=== PATIENT | male | born 1960 | race Caucasian/White ===

== ENCOUNTER 2024-12-24 08:13 | Outpatient (AMB) | payer MEDICAID, SELFPAY ==
[2024-12-24 08:26] VITALS: BP 153/96; PULSE 88; RESP 18; TEMP 36.2; O2SAT 99; BMI 28.5
--- NOTE | 2024-12-24 08:26 | PD.ORTHCLVIS ---
Vital signs 12/24/24 08:26 Height 1.74 m Height Method Stated Weight 86.324 kg Weight Measurement Method Standing Scale BMI 28.5 BP 153/96 H Blood Pressure Source Automatic Cuff Blood Pressure Location Left Upper Arm Position Sitting Respiration 18 Pulse 88 Pulse Source Monitor Temp 97.2 F Temp Source Temporal Artery Scan Pulse Oximetry (%) 99 Oxygen Delivery Method Room Air Med/Allergies Allergies & Medications Allergies No Known Allergies Allergy (Verified 12/24/24 08:27) Medication Reconciliation fluoxetine 40 mg capsule (Prozac) 40 mg PO QDAY 05/23/23 [History Confirmed 12/24/24] hydrocodone 10 mg-acetaminophen 325 mg/15 mL (15 mL) oral solution 15 ml PO Q8H PRN 12/24/24 [History Confirmed 12/24/24] meloxicam 7.5 mg tablet 7.5 mg PO QDAY #45 tabs 12/24/24 [Rx] Exam Exam Patient is in no acute distress and is cooperative with the examination today. Breathing is nonlabored. In no respiratory distress. Patient has no paraspinal tenderness. Spinal deformity cannot be appreciated. The gait of the patient is nonantalgic Bilateral extremities were evaluated and demonstrates sensation intact to light touch. Palpable pedal pulses are present. No significant edema is present. Bilateral knees were examined and the patient has full strength and range of motion.. The left hip was examined. Patient was able to flex to 90 degrees, adduct to 30 degrees, abduct to 40 degrees, internally rotate to 20 degrees, and externally rotate to 20 degrees. Patient has a negative logroll. Stinchfield is negative. The patient is nontender diffusely to touch. The right hip was examined. Patient was able to flex to 90 degrees, adduct to 30 degrees, abduct to 40 degrees, internally rotate to 10 degrees, and externally rotate to 20 degrees. Patient has a positive logroll and a positive Stinchfield. He has a positive FADIR as well. An MRI demonstrates degenerative changes including arthritis as well as joint space narrowing and osteophytes. He does have a gluteus medius tear as well as a labral tear according to the report Assessment and Plan Problem List (1) Arthritis of right hip: Status: Acute Plan: Patient is a pleasant 64-year-old male with right hip arthritis. We discussed different treatment options. We will start with anti-inflammatory we will try injections if needed. I will also like to get a hip x-rays only have an MRI Office Procedures GNS Level of Care Nursing/Assessment Patient Status: Initial/New Patient Nursing Assessment/Reassesment: Medication Reconciliation, Update PMH in EMR and Vital Signs Coordination of Care: Complex Care and Chronic Disease 1-5, Education Complex Pt/Fam, Consent,records obtained, informed consent, 1 Ins Authorization, Lab and Imaging orders, Results/Orders obtained and Staff clarify orders New Patient Charge New Patient Point Assignment: 1124 New Patient Point Charge: NOTE SPECIALIST Level 4 ([id number]) MA Intake Visit Data Collection New Patient or Established: Established Patient (seen at [facility] within 3 years) Reason for Visit:: RIGHT HIP- TEAR GLUTEOS MEDIUS Seen by Clinical Staff ONLY (RN/MA): No Heavy Equipment Operating Engineer Required: No PCP or OBGYN visit in last 3 months: Yes Hx Now: No Do You Feel Safe at Home: Yes Authorities Contacted: N/A Questionairres Past Medical History Past Medical History Have you ever been diagnosed with any of the following: Cardiology Problems Congestive Heart Failure: No Cardiomyopathy: Yes Respiratory Problems Chronic Obstructive Pulmonary Disease (COPD): No Smoking: No Smoking Exposure: No Tobacco Use: No Genital/Urinary Problems Renal Disease: No Endocrine Problems Diabetes Mellitus Type 1: No Diabetes Mellitus Type 2: No Psychologic Problems Recreational Drug Use: Yes Subjective Visit Visit for: new patient and hip (RIGHT HIP- TEAR GLUTEOS MEDIUS) Immunization / Flu Flu Vaccine in the Last 12 Months: Yes Flu Vaccine Exclusion Criteria: Already Received History of Present Illness Chief complaint: Right hip pain Gaetano is a pleasant 65-year-old male with right hip pain. This has been ongoing for 1 year. He had an MRI and was told he had a gluteus medius as well as a labral tear. He reports a lot of pain in his groin. He has not tried significant conservative treatment. He is taking [place] Personal History Red flag PMH: none Pain Pain level (0-10): 9 Pain duration: 1 YEAR Pain location: groin Pain quality: sharp Pain timing: night and increases with activity Associated signs & symptoms: none Ambulatory data Ambulatory device: none Walking distance (minutes): 5 Treatments Number of previous injections: 0 Number of Physical Therapy sessions: 0 Improvement with NSAIDS: n/a Review of Systems Review of Systems: All systems negative unless otherwise noted in HPI.
--- NOTE | 2024-12-24 08:54 | XR_ITS ---
Examination:Right hip AP, lateral, AP pelvis 3 views Technique: Hip AP lateral, AP pelvis, 3 views Exam date and time:December 24, 2024 0857 hours INDICATIONS: Right hip pain beginning 14 years ago. FINDINGS: Moderate narrowing right hip joint No right hip fracture or dislocation Mild narrowing left hip joint No hip or pelvic fracture IMPRESSION: Moderate right hip osteoarthritis.
== END 2024-12-24 08:58 | disposition home or self-care (01) ==
LOC: HODSRG 08:13
PROVIDERS: PCP Emergency Medicine; Referring Provider Emergency Medicine; Supervising Provider Orthopaedic Surgery Adult Reconstructive Orthopaedic Surgery; Visit Provider Orthopaedic Surgery Adult Reconstructive Orthopaedic Surgery
DX: M16.11 Unilateral primary osteoarthritis, right hip (principal); M25.551 Pain in right hip
CPT/HCPCS: 73502; 99204; G0463

== ENCOUNTER 2025-01-16 07:59 | Outpatient (AMB) | payer MEDICAID, SELFPAY ==
[2025-01-16 08:14] VITALS: BP 138/92; PULSE 92; RESP 18; TEMP 36.3; O2SAT 98; BMI 28.3
--- NOTE | 2025-01-16 08:14 | ORTHONT_ITS ---
Vital signs 01/16/25 08:14 Height 1.74 m Height Method Measured Weight 85.956 kg Weight Measurement Method Standing Scale BMI 28.3 BP 138/92 H Blood Pressure Source Automatic Cuff Blood Pressure Location Left Upper Arm Position Sitting Respiration 18 Pulse 92 Pulse Source Monitor Temp 97.4 F Temp Source Temporal Artery Scan Pulse Oximetry (%) 98 Oxygen Delivery Method Room Air Med/Allergies Allergies & Medications Allergies No Known Allergies Allergy (Verified 01/16/25 08:15) Medication Reconciliation fluoxetine 40 mg capsule (Prozac) 40 mg PO QDAY 05/23/23 [History Confirmed 12/31 01/24] hydrocodone 10 mg-acetaminophen 325 mg/15 mL (15 mL) oral solution 15 ml PO Q8H PRN 12/24/24 [History Confirmed 01/16/25] meloxicam 7.5 mg tablet 7.5 mg PO QDAY #45 tabs 12/24/24 [Rx Confirmed 01/16/25] Exam Exam Patient is in no acute distress and is cooperative with the examination today. Breathing is nonlabored. In no respiratory distress. Patient has no paraspinal tenderness. Spinal deformity cannot be appreciated. The gait of the patient is nonantalgic Bilateral extremities were evaluated and demonstrates sensation intact to light touch. Palpable pedal pulses are present. No significant edema is present. Bilateral knees were examined and the patient has full strength and range of motion.. The left hip was examined. Patient was able to flex to 90 degrees, adduct to 30 degrees, abduct to 40 degrees, internally rotate to 20 degrees, and externally rotate to 20 degrees. Patient has a negative logroll. Stinchfield is negative. The patient is nontender diffusely to touch. The right hip was examined. Patient was able to flex to 90 degrees, adduct to 30 degrees, abduct to 40 degrees, internally rotate to 10 degrees, and externally rotate to 20 degrees. Patient has a positive logroll and a positive Stinchfield. He has a positive FADIR as well. An MRI demonstrates degenerative changes including arthritis as well as joint space narrowing and osteophytes. He does have a gluteus medius tear as well as a labral tear according to the report Assessment and Plan Problem List (1) Arthritis of right hip: Status: Acute Plan: Patient is a pleasant 64-year-old male with right hip arthritis. We discussed different treatment options. We will start with anti-inflammatory we will try injections if needed. We will try a right hip intraarticular cortisone injection as his osteoarthritis is mild to moderate Office Procedures GNS Level of Care Nursing/Assessment Patient Status: Established Patient Nursing Assessment/Reassesment: Medication Reconciliation, Update PMH in EMR and Vital Signs Coordination of Care: Complex Care and Chronic Disease 1-5, Education Complex Pt/Fam, Consent,records obtained, informed consent, 1 Ins Authorization, Lab and Imaging orders, Results/Orders obtained and Staff clarify orders Established Patient Charge Established Patient Point Assignment: 125 Established Patient Point Charge: EP Level 3 (80-115) MA Intake Visit Data Collection New Patient or Established: Established Patient (seen at [facility] within 3 years) Reason for Visit:: XRAY RESULTS/HIP INJECTION Seen by Clinical Staff ONLY (RN/MA): No PCP or OBGYN visit in last 3 months: Yes Hx Now: No Do You Feel Safe at Home: Yes Authorities Contacted: N/A Questionairres Past Medical History Past Medical History Have you ever been diagnosed with any of the following: Cardiology Problems Congestive Heart Failure: No Cardiomyopathy: Yes Respiratory Problems Chronic Obstructive Pulmonary Disease (COPD): No Smoking: No Smoking Exposure: No Tobacco Use: No Genital/Urinary Problems Renal Disease: No Endocrine Problems Diabetes Mellitus Type 1: No Diabetes Mellitus Type 2: No Psychologic Problems Recreational Drug Use: Yes Subjective Visit Visit for: follow up visit, hip and x-rays (RESULTS) Immunization / Flu Flu Vaccine in the Last 12 Months: No Flu Vaccine Exclusion Criteria: No Exclusion Criteria History of Present Illness Chief complaint: Right hip pain Gaetano is a pleasant 65-year-old male with right hip pain. This has been ongoing for 1 year. He had an MRI and was told he had a gluteus medius as well as a labral tear. He reports a lot of pain in his groin. He has not tried significant conservative treatment. He is taking [place] Personal History Red flag PMH: none Pain Pain level (0-10): 8 Pain duration: CONSTANT Pain location: outside (lateral) and posterior Pain quality: dull and aching Pain timing: night and increases with activity Associated signs & symptoms: none Ambulatory data Ambulatory device: none Walking distance (minutes): 5 Treatments Number of previous injections: 0 Improvement with previous injections: No Number of Physical Therapy sessions: 0 Improvement with PT: No Improvement with NSAIDS: no Review of Systems Review of Systems: All systems negative unless otherwise noted in HPI.
== END 2025-01-16 08:31 | disposition home or self-care (01) ==
LOC: HODSRG 07:59
PROVIDERS: PCP Emergency Medicine; Referring Provider Emergency Medicine; Supervising Provider Orthopaedic Surgery Adult Reconstructive Orthopaedic Surgery; Visit Provider Orthopaedic Surgery Adult Reconstructive Orthopaedic Surgery
DX: M16.11 Unilateral primary osteoarthritis, right hip (principal); M25.551 Pain in right hip
CPT/HCPCS: 99213; G0463

== ENCOUNTER → 2025-02-11 | Outpatient (CLI) | payer MEDICAID, SELFPAY ==
--- NOTE | 2025-02-11 11:00 | XR_ITS ---
Examination: Steroid injection right hip joint with imaging guidance Fluoroscopy AP right hip single view. Exam date and time: February 11, 2025 1122 hours INDICATIONS: Right hip pain one year Informed consent provided. Technique: A timeout was completed verifying correct patient, procedure, site, positioning. The patient was placed in supine position appropriate for the steroid injection The patient's site was prepped and draped in sterile fashion 5 cc 1% lidocaine administered locally for anesthesia. Sterile drape applied, maximum barrier sterile technique. Utilizing fluoroscopic guidance, 23-gauge needle placed in the right hip joint 1 cc Kenalog 40 in 5 cc 0.25% Marcaine introduced into the right hip joint The patient was in satisfactory and stable condition on completion of the procedure Attending radiologist was present for the entire procedure Estimated blood loss 0 cc. Impression: Successful steroid injection right hip joint with imaging guidance Fluoroscopy 0.2 minute radiation dose 2.06 milligray 1 spot fluoroscopic right hip film .
== END | disposition home or self-care (01) ==
PROVIDERS: PCP Emergency Medicine; Referring Provider Orthopaedic Surgery Adult Reconstructive Orthopaedic Surgery; Visit Provider Orthopaedic Surgery Adult Reconstructive Orthopaedic Surgery
DX: M16.11 Unilateral primary osteoarthritis, right hip (principal)
CPT/HCPCS: 20610; 77002